=== PATIENT | male | born 1995 | race Caucasian/White ===

== ENCOUNTER 2021-11-22 18:15 | Emergency (ER) | payer OTHER ==
[2021-11-22 19:43] LABS: BASOPHIL 0.3 % (0-2); EOSINOPHIL 2.8 % (0-5); HGB 17.9 g/dl (13.2-18.0); LYMPHOCYTE 23.9 % (15-48); MCH 29.6 pg (25.0-31.0); MCHC 35.1 g/dL (32.0-36.0); MCV 84.3 fL (78.0-100.0); MONOCYTE 12.9 % (0-12); MPV 11.5 fL (6.0-9.5); NEUTROPHIL 59.8 % (41-80); NRBC 0; PLT 163 K/uL (150-400); RBC 6.05 M/uL (4.70-6.00); WBC 7.2 K/uL (4.0-10.5)
[2021-11-22 19:49] LABS: BILIRUBIN NEGATIVE (NEGATIVE); BLOOD NEGATIVE Ery/uL (NEGATIVE); CLARITY CLEAR (CLEAR); COLOR YELLOW (YELLOW); GLUCOSE (U) NORMAL (NORMAL); LEUKOCYTES NEGATIVE Leu/uL (NEGATIVE); NITRITE NEGATIVE (NEGATIVE); PROTEIN NEGATIVE (NEGATIVE); SPECIFIC GRAVITY 1.025 (1.001-1.030); UROBILINOGEN 0.2 mg/dL (0.2-1.0)
[2021-11-22 19:55] LABS: ALBUMIN 3.8 g/dL (3.4-5.0); BILIRUBIN - TOTAL 0.3 mg/dL (0.2-1.0); BUN/CREAT RATIO (CALC) 12.5 RATIO; CREATININE 0.96 mg/dL (0.67-1.17); GLOBULIN (CALCULATION) 3.6 g/dL; POTASSIUM 3.5 mmol/L (3.5-5.1); TOTAL PROTEIN 7.4 g/dL (6.4-8.2)
[2021-11-22] MEDS ORDERED: ONDANSETRON ODT4 MG PO ×2 (21:07→21:15)
[2021-11-22 21:10] LABS: CORONAVIRUS 2019 SARS-COV-2 NEGATIVE (NEGATIVE); INFLUENZA A NAA NEGATIVE (NEGATIVE)
[2021-11-22] MEDS ORDERED: NORCO 5-325 TA1 EACH PO (21:15)
== END 2021-11-22 21:35 | disposition home or self-care (01) ==
LOC: FER 18:15
PROVIDERS: Internal Medicine
DX: R10.11 Right upper quadrant pain (principal); R11.2 Nausea with vomiting, unspecified; R19.7 Diarrhea, unspecified; F17.210 Nicotine dependence, cigarettes, uncomplicated; Z20.822 Contact with and (suspected) exposure to COVID-19; Z28.310 Unvaccinated for COVID-19
CPT/HCPCS: 36415; 80053; 81003; 83690; 85025; J1170; J2405; J7030; Q9967; U0002